=== PATIENT | female | born 1955 | race Caucasian/White ===

== ENCOUNTER 2017-02-13 21:28 | Observation (INO) | payer OTHER ==
[~2017-02-13] VITALS: Ht 154.9 cm; Wt 61.7 kg
[~2017-02-13 21:28] MED LIST: ADDERALL XR 2020 MG PO; ASPIR-LOW81 MG PO; B-121000 MC1 SL; DAILY VALUE1 EACH PO; FISH OIL300 MG PO; FLONASE16 G1 BOTH NARES; MAGNESIUM400 M1 PO; PROAIR HFA8.5 GM IH; SINGULAIR10 MG PO; VITAMIN D2000 UNI1 PO; ZYRTEC10 M2 PO
[2017-02-13 21:55] LABS: MCH 30.5 PG (29.0-34.0); MCHC 33.7 G/DL (30.0-36.0); MCV 90.5 FL (83-99); MEAN PLAT.VOLUME 10.2 uM^3 (9.5-12.4); PLATELET COUNT 250 K/uL (156-360); RBC DIS.WIDTH-CV 11.9 % (11.8-14.6); RBC DIS.WIDTH-SD 39.7 % (39-53); RED BLOOD COUNT 4.75 M/uL (3.80-5.20); WHITE BLOOD COUNT 10.4 K/uL (4.1-10.2)
[2017-02-13 22:07] LABS: CHLORIDE 103 mEq/L (99-109); POTASSIUM 3.9 mEq/L (3.7-5.4); SODIUM 138 mEq/L (136-147)
[2017-02-13 22:08] LABS: GLUCOSE 110 mg/dL (70-99)
[2017-02-13 22:10] LABS: ANION GAP 10 MEQ/L (2-14)
[2017-02-13 22:12] LABS: GFR ESTIMATE (CALCULATED) > 59 mL/min/
[2017-02-13 22:13] LABS: UREA NITROGEN (BUN) 18 mg/dL (9-23)
[2017-02-13 22:17] LABS: TROP-I INTERPRETATION NEGATIVE; TROPONIN-I < 0.01 ng/mL (0.0-0.30)
[2017-02-13] MEDS ORDERED: CALCIUM PLUS M1 EAC1 PO (23:31)
[2017-02-13] MEDS ORDERED: MOTRIN IB200 MG PO (23:32)
[2017-02-13] MEDS ORDERED: BIOTIN1000 MICRO PO (23:34)
[2017-02-13] MEDS ORDERED: PROCARDIA20 MG PO (23:37)
[2017-02-13] MEDS ORDERED: ZOLOFT50 MG PO (23:38)
[2017-02-13] MEDS ORDERED: NITROSTAT0.4 MG SL (23:39)
[2017-02-14 00:58] VITALS: BP 118/61
[2017-02-14 02:53] LABS: TOTAL BILIRUBIN 1.1 mg/dL (0.0-1.0)
[2017-02-14 02:54] LABS: ALKALINE PHOSPHATASE 63 IU/L (3-129)
[2017-02-14 02:56] LABS: DIRECT BILIRUBIN 0.4 mg/dL (0.0-0.3)
[2017-02-14 06:23] LABS: TROP-I INTERPRETATION NEGATIVE; TROPONIN-I 0.02 ng/mL (0.0-0.30)
[2017-02-14 08:46] VITALS: BP 109/60
[2017-02-14 10:39] LABS: TROP-I INTERPRETATION NEGATIVE; TROPONIN-I 0.01 ng/mL (0.0-0.30)
== END 2017-02-14 12:05 | disposition home or self-care (01) ==
LOC: EME 21:28 → EDOF 02-14 00:24 → ENRESERV 02-14 00:24 → 5WEST 02-14 00:49
PROVIDERS: Hospitalist
DX: R07.89 Other chest pain (principal); R94.31 Abnormal electrocardiogram [ECG] [EKG]; I25.2 Old myocardial infarction; I73.00 Raynaud's syndrome without gangrene; J45.909 Unspecified asthma, uncomplicated; R00.2 Palpitations; E78.5 Hyperlipidemia, unspecified; R55 Syncope and collapse; N28.9 Disorder of kidney and ureter, unspecified; F41.9 Anxiety disorder, unspecified; F32.9 Major depressive disorder, single episode, unspecified; Z82.49 Family history of ischemic heart disease and other diseases of the circulatory system; Z80.0 Family history of malignant neoplasm of digestive organs
CPT/HCPCS: 71020; 80048; 80076; 84484; 85027; 93005; 99281; 99285; G0378

== ENCOUNTER 2017-04-23 16:22 | Emergency (ER) | payer OTHER ==
[~2017-04-23] VITALS: Ht 154.9 cm; Wt 56.7 kg
[~2017-04-23 16:22] MED LIST changes: +BIOTIN1000 MICRO PO; +CALCIUM PLUS M1 EAC1 PO; +MOTRIN IB200 MG PO; +NITROSTAT0.4 MG SL; +PROCARDIA20 MG PO; +ZOLOFT50 MG PO
[2017-04-23 17:23] LABS: HEMATOCRIT 40.5 % (36.0-46.0); MCH 31.5 PG (29.0-34.0); MCHC 34.3 G/DL (30.0-36.0); MCV 91.8 FL (83-99); MEAN PLAT.VOLUME 10.5 uM^3 (9.5-12.4); PLATELET COUNT 225 K/uL (156-360); RBC DIS.WIDTH-CV 12.2 % (11.8-14.6); RBC DIS.WIDTH-SD 41.3 % (39-53); RED BLOOD COUNT 4.41 M/uL (3.80-5.20); WHITE BLOOD COUNT 6.5 K/uL (4.1-10.2)
[2017-04-23 17:31] LABS: CHLORIDE 105 mEq/L (99-109); POTASSIUM 3.2 mEq/L (3.7-5.4); SODIUM 137 mEq/L (136-147)
[2017-04-23 17:32] LABS: MAGNESIUM 1.9 mg/dL (1.3-2.7)
[2017-04-23 17:33] LABS: GLUCOSE 91 mg/dL (70-99)
[2017-04-23 17:35] LABS: ANION GAP 9 MEQ/L (2-14)
[2017-04-23 17:37] LABS: GFR ESTIMATE (CALCULATED) > 59 mL/min/
[2017-04-23 17:38] LABS: UREA NITROGEN (BUN) 16 mg/dL (9-23)
[2017-04-23 17:43] LABS: TROP-I INTERPRETATION NEGATIVE; TROPONIN-I 0.02 ng/mL (0.0-0.30)
[2017-04-23 18:50] VITALS: BP 134/77
== END 2017-04-23 18:58 | disposition home or self-care (01) ==
LOC: EME 16:22
PROVIDERS: Emergency Medicine
DX: I47.1 Supraventricular tachycardia (principal); E87.6 Hypokalemia; J45.909 Unspecified asthma, uncomplicated; I25.2 Old myocardial infarction; Z87.891 Personal history of nicotine dependence; Z88.2 Allergy status to sulfonamides
CPT/HCPCS: 80048; 83735; 84484; 85027; 93005; 99281; 99285